=== PATIENT | male | born 1980 | race Caucasian/White ===

== ENCOUNTER 2018-07-29 07:29 | Emergency (ER) | payer SELFPAY ==
[2018-07-29] MEDS ORDERED: NA CHLORIDE 0.9% 1,000 ML ONE (08:00)
[2018-07-29 08:42] LABS: Absolute Lymphocytes (CBC) 3.6 K/uL (0.7-4.9); Absolute Monocytes 0.9 K/uL (0.1-1.3); Absolute Neutrophil 8.6 K/uL (1.8-8.0); Basophils % 0.6 % (0-1.3); Eosinophils % 3.2 % (0-4.4); Hematocrit 39.9 % (39.6-49.0); Lymphocytes % 26.7 % (15.3-44.8); MPV 8.4 fL (7.6-11.3); Monocytes % 6.3 % (3.3-12.3); RBC Red Blood Cell Count 4.34 M/uL (4.33-5.43)
[2018-07-29 08:50] LABS: BUN Blood Urea Nitrogen 9 mg/dL (7-18); Bicarbonate 29 mmol/L (21-32); Glucose Level 102 mg/dL (74-106); Potassium 3.2 mmol/L (3.5-5.1); Sodium Level 141 mmol/L (136-145)
[2018-07-29 10:03] LABS: Urine Blood NEGATIVE (NEG); Urine Glucose NEGATIVE (NEG); Urine Protein NEGATIVE (NEG)
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
[2018-07-29] MEDS ORDERED: TETANUS & DIPHTHERIA TOX,ADULT 0.5 ML VIAL ONE (11:33)
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
[2018-07-29 12:37] VITALS: O2SAT 98
[2018-07-29 12:42] VITALS: BP 121/74; TEMP 97.2
== END 2018-07-29 12:14 | disposition home or self-care (01) ==
LOC: ER 07:29
DX: S00.91XA Abrasion of unspecified part of head, initial encounter (principal); Y04.0XXA Assault by unarmed brawl or fight, initial encounter; Z88.6 Allergy status to analgesic agent; Z72.0 Tobacco use
CPT/HCPCS: 36415; 70450; 71260; 72125; 74177; 80048; 81003; 85025; 90714; 96360; 96361; 99285; J7030; Q9967